=== PATIENT | male | born 1945 | race Hispanic/Latino ===

== ENCOUNTER 2020-07-24 10:08 | Observation (INO) | payer MEDICARE ==
[~2020-07-24] VITALS: Ht 162.6 cm; Wt 65.8 kg
[2020-07-24 10:39] LABS: BASOPHILS % 0.6 % (0.0-1.0); EOSINOPHILS # (AUTO) 0.2 (0.0-0.4); EOSINOPHILS % 2.6 % (0.0-6.0); HEMATOCRIT 39.9 % (38.2-49.6); HEMOGLOBIN 13.4 g/dL (14.0-18.0); LYMPHOCYTES # (AUTO) 1.4 (1.0-3.2); MEAN CORPUSCULAR HEMOGLOBIN 31.2 pg (28-32); MEAN CORPUSCULAR HGB CONC 33.6 g/dL (31-35); MONOCYTES # (AUTO) 0.4 (0.2-0.8); MONOCYTES % 5.9 % (4.4-11.3); NEUTROPHILS # (AUTO) 4.9 (2.1-6.9); NEUTROPHILS % 70.5 % (38.7-80.0); PLATELET COUNT 326 x10e3/uL (140-360); RED BLOOD COUNT 4.29 x10e6/uL (4.3-5.7); RED CELL DISTRIBUTION WIDTH 13.2 % (11.7-14.4)
[2020-07-24 10:45] LABS: INR 1.07; PROTHROMBIN TIME 14.5 seconds (11.9-14.5)
[2020-07-24 10:46] LABS: PARTIAL THROMBOPLASTIN TIME 34.4 seconds (23.8-35.5)
[2020-07-24 10:51] LABS: ALBUMIN 3.8 g/dL (3.5-5.0); ALBUMIN/GLOBULIN RATIO 1.2 (0.8-2.0); ANION GAP 14.1 mmol/L (8-16); CALCIUM 9.4 mg/dL (8.4-10.2); CREATININE, SERUM 1.29 mg/dL (0.72-1.25); MAGNESIUM 1.9 MG/DL (1.3-2.1); POTASSIUM 4.1 mmol/L (3.5-5.1)
[2020-07-24 10:57] LABS: CREATINE KINASE MB 1.1 ng/mL (0-5.0)
--- NOTE | 2020-07-24 11:03 | Emergency Department Note ---
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 Patient reports that after the event he was unable to control his right arm and it was just "dangling" there. Patient appears to be able to move his right arm in triage. Denies pain at this time. Strength in arms appears equal bilaterally. No drift noted. Smile and facial features equal bilaterally. Denies dizziness. Patient is on eliquis for his "blood being too thick". Historian: Patient Arrival Mode: [employer] Required: No Location: RIGHT ARM Quality: WEAK/LIMP Radiation: Reports non-radiation Severity: severe Onset quality: sudden (LASTED ONLY SECONDS) Progression: resolved Chronicity: new Context: Denies recent illness Relieving factors: none Exacerbating factors: none Associated symptoms: Reports denies other symptoms Past Medical/Family History Physician Review I have reviewed the patient's past medical and family history. Any updates have been documented here. Past Medical History Recent Fever: No Clinical Suspicion of Infectio: No New/Unexplained Change in Ment: No Past Medical History: Hypertension, A-Fib, Hyperlipedemia Other Medical History: BPH Other Surgery: cardiac ablation Social History Smoking Cessation: Current every day smoker Alcohol Use: Daily Any Illegal Drug Use: No TB Exposure/Symptoms: No Physically hurt or threatened: No Family History Family history of heart diseas: No Other Any Pre-Existing Lines (PICC,: No Review of Systems Review of Systems Constitutional: Reports no symptoms EENTM: Reports no symptoms Cardiovascular: Reports no symptoms Respiratory: Reports no symptoms Gastrointestinal: Reports no symptoms Genitourinary: Reports no symptoms Musculoskeletal: Reports no symptoms Integumentary: Reports no symptoms Neurological: Reports as per HPI Psychological: Reports no symptoms Endocrine: Reports no symptoms Hematological/Lymphatic: Reports no symptoms Physical Exam Related Data Allergies: Coded Allergies: No Known Allergies (Unverified , 07/24/20) Triage Vital Signs Vital Signs Date Time Temp Pulse Resp B/P (MAP) Pulse Ox O2 Delivery O2 Flow Rate FiO2 07/24/20 10:15 97.7 54 16 136/103 100 Room Air Vital signs reviewed: Yes Physical Exam CONSTITUTIONAL Constitutional: Present well-developed, Present well-nourished HENT HENT: Present normocephalic, Present atraumatic, Present oropharynx clear/moist, Present nose normal HENT L/R: Present left ext ear normal, Present right ext ear normal EYES Eyes: Reports PERRL, Reports conjunctivae normal NECK Neck: Present ROM normal, Present other (NO POSTERIOR NECK BRUIT); Absent carotid bruit PULMONARY Pulmonary: Present effort normal, Present breath sounds normal CARDIOVASCULAR Cardiovascular: Present regular rhythm, Present heart sounds normal, Present capillary refill normal, Present normal rate GASTROINTESTINAL Abdominal: Present soft, Present nontender, Present bowel sounds normal GENITOURINARY Genitourinary: Present exam deferred SKIN Skin: Present warm, Present dry MUSCULOSKELETAL Musculoskeletal: Present ROM normal NEUROLOGICAL Neurological: Present alert, Present oriented x 3, Present DTRs normal, Present no gross motor or sensory deficits; Absent cranial nerve deficit, Absent sensory deficit, Absent abnormal gait, Absent weakness PSYCHOLOGICAL Psychological: Present mood/affect normal, Present judgement normal Results Laboratory Result Diagram: 07/24/20 1024 07/24/20 1024 Laboratory Laboratory Tests Test 07/24/20 10:24 White Blood Count 6.96 x10e3/uL (4.8-10.8) Red Blood Count 4.29 x10e6/uL (4.3-5.7) Hemoglobin 13.4 g/dL (14.0-18.0) Hematocrit 39.9 % (38.2-49.6) Mean Corpuscular Volume 93.0 fL (81-99) Mean Corpuscular Hemoglobin 31.2 pg (28-32) Mean Corpuscular Hemoglobin Concent 33.6 g/dL (31-35) Red Cell Distribution Width 13.2 % (11.7-14.4) Platelet Count 326 x10e3/uL (140-360) Neutrophils (%) (Auto) 70.5 % (38.7-80.0) Lymphocytes (%) (Auto) 20.0 % (18.0-39.1) Monocytes (%) (Auto) 5.9 % (4.4-11.3) Eosinophils (%) (Auto) 2.6 % (0.0-6.0) Basophils (%) (Auto) 0.6 % (0.0-1.0) Neutrophils # (Auto) 4.9 (2.1-6.9) Lymphocytes # (Auto) 1.4 (1.0-3.2) Monocytes # (Auto) 0.4 (0.2-0.8) Eosinophils # (Auto) 0.2 (0.0-0.4) Basophils # (Auto) 0.0 (0.0-0.1) Absolute Immature Granulocyte (auto 0.03 x10e3/uL (0-0.1) Prothrombin Time 14.5 seconds (11.9-14.5) Prothromb Time International Ratio 1.07 Activated Partial Thromboplast Time 34.4 seconds (23.8-35.5) Sodium Level 143 mmol/L (136-145) Potassium Level 4.1 mmol/L (3.5-5.1) Chloride Level 108 mmol/L (98-107) Carbon Dioxide Level 25 mmol/L (22-29) Anion Gap 14.1 mmol/L (8-16) Blood Urea Nitrogen 21 mg/dL (7-26) Creatinine 1.29 mg/dL (0.72-1.25) Estimat Glomerular Filtration Rate 54 ML/MIN (60-) BUN/Creatinine Ratio 16 (6-25) Glucose Level 146 mg/dL (74-118) Calcium Level 9.4 mg/dL (8.4-10.2) Magnesium Level 1.9 MG/DL (1.3-2.1) Total Bilirubin 0.8 mg/dL (0.2-1.2) Aspartate Amino Transf (AST/SGOT) 23 IU/L (5-34) Alanine Aminotransferase (ALT/SGPT) 20 IU/L (0-55) Alkaline Phosphatase 58 IU/L (40-150) Creatine Kinase 57 IU/L (30-200) Total Protein 6.9 g/dL (6.5-8.1) Albumin 3.8 g/dL (3.5-5.0) Globulin 3.1 g/dL (2.3-3.5) Albumin/Globulin Ratio 1.2 (0.8-2.0) Lab results reviewed: Yes Imaging Imaging results reviewed: Yes Impressions CT BRAIN WO HISTORY: Left arm weakness COMPARISON: None. Technique: Noncontrast axial scans were obtained from skull base to the vertex. Coronal and sagittal reconstructions obtained from the axial data. One or more of the following dose reduction techniques were used: Automated exposure control, adjustment of the mA and/or kV according to patient size, and/or utilization of iterative reconstruction technique. DISCUSSION: Scalp/Skull: Unremarkable. Brain sulci: Mildly prominent. Ventricles: Compensatory dilatation. Extra-axial spaces: No masses or fluid collections. Carotid siphon calcifications are present. Parenchyma: Focal cortical insult along the right lateral precentral gyrus is age indeterminate. Mild bilateral deep white matter hypodensity is likely chronic microvascular ischemic change. Otherwise, no masses, hemorrhage, or large vascular territory acute infarct. Dural sinuses: No abnormal densities. Sellar/Suprasellar region: Intact. Skull base: Intact. Incidental findings: Diffuse paranasal sinus mucosal thickening is present. IMPRESSION: 1. 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 2. Otherwise, no acute intracranial abnormalities. 3. Mild supratentorial chronic microvascular ischemic change. Mild generalized cerebral volume loss. Signed by: Dr. Popeye Kay M.D. 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 HE HAS H/O AFIB, ON ELIQUIS, HTN/CHOL - R/O CEREBRAL BLEED, ISCHEMIC STROKE, VERTEBROBASILAR INSUFF, ELECTROLYTE ABNL Reassessment Reassessment ADMIT TO DR TORREZ Assessment & Plan Final Impression: (1) CVA (cerebral vascular accident) Depart Disposition: ADMITTED Last Vital Signs Date Time Temp Pulse Resp B/P (MAP) Pulse Ox O2 Delivery O2 Flow Rate FiO2 07/24/20 10:15 97.7 54 16 136/103 100 Room Air OLEGARIO LUGO MD Jul 24, 2020 11:03
--- NOTE | 2020-07-24 11:34 | Diagnostic Imaging Report ---
TECHNIQUE: Frontal view of the chest. INDICATION: ^LEFT ARM WEAKNESS COMPARISON: None DISCUSSION: Limited evaluation due to portable technique. Lines and hardware: None Heart and mediastinum: Normal limits. Lungs and pleura: No focal airspace consolidation. No pleural effusion. No pneumothorax. Soft tissues and bones: No acute abnormality. IMPRESSION: Negative for acute intrathoracic process. Signed by: Darrell Eddy MD on 07/24/2020 11:30 AM
--- NOTE | 2020-07-24 11:52 | Diagnostic Imaging Report ---
CT BRAIN WO HISTORY: Left arm weakness COMPARISON: None. Technique: Noncontrast axial scans were obtained from skull base to the vertex. Coronal and sagittal reconstructions obtained from the axial data. One or more of the following dose reduction techniques were used: Automated exposure control, adjustment of the mA and/or kV according to patient size, and/or utilization of iterative reconstruction technique. DISCUSSION: Scalp/Skull: Unremarkable. Brain sulci: Mildly prominent. Ventricles: Compensatory dilatation. Extra-axial spaces: No masses or fluid collections. Carotid siphon calcifications are present. Parenchyma: Focal cortical insult along the right lateral precentral gyrus is age indeterminate. Mild bilateral deep white matter hypodensity is likely chronic microvascular ischemic change. Otherwise, no masses, hemorrhage, or large vascular territory acute infarct. Dural sinuses: No abnormal densities. Sellar/Suprasellar region: Intact. Skull base: Intact. Incidental findings: Diffuse paranasal sinus mucosal thickening is present. IMPRESSION: 1. 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 2. Otherwise, no acute intracranial abnormalities. 3. Mild supratentorial chronic microvascular ischemic change. Mild generalized cerebral volume loss. Signed by: Dr. Popeye Kay M.D. on 07/24/2020 11:48 AM
[2020-07-24] MEDS ORDERED: SODIUM CHLORIDE 0.9% 1000ML 1,000 ML IV SCH (12:00)
[2020-07-24] MEDS ORDERED: ONDANSETRON HCL INJ 2MG/ML 2ML 2 MG/ML VIAL IV PRN ×2 (12:00→12:15)
[2020-07-24] MEDS ORDERED: ACETAMINOPHEN 325 MG TAB PO PRN (12:15)
--- OUTSIDE RECORDS SUMMARY | 2020-07-24 12:35 | XMS REPORT | Continuity of Care Document ---
Author Author [facility] t Organization [facility] Address 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 [facility] BPH (benign prostatic hyperplasia) BPH (benign prostatic hyperpl anastacia) Disease Active 2018-02-26 00:00:00 [facility] Atrial fibrillation with rapid ventricular response At rial fibrillation with rapid ventricular response Disease Active 2018-02-25 00:00:00 [facility] Atrial fibrillation Atrial fibrillation Disease Active 2016-04-17 00:00 :00 [facility] Chronic systolic congestive heart failure Chronic syst olic congestive heart failure Disease Active 2016-04-17 00:00:00 [facility] Abnormal stress test Abnormal stress test Disease Active 00:00:00 [facility] Atrial fibrillation with RVR Atrial fibrillation with RVR Disease Active 2016-04-16 00:00:00 [facility] Chest pain, unspecified type Chest pain, unspecified type Disease Active 2016-04-15 00:00:00 [facility] Essential hypertension with goal blood pressure less t meek 130/85 Essential hypertension with goal blood pressure less than 130/85 Disease Activ e 2016-04-15 00:00:00 [facility] Allergies, Adverse Reactions, Alerts This patient has no known allergies or adverse reactions. Social History Social Habit Start Date Stop Date Quantity Comments Source History of tobacco use Cigarette Smoker [facility] Sex Assigned At [facility] Cigarettes smoked current (pack per day) - Reported 00:00:00 2018-02-25 00:00:00 [facility] Tobacco use and exposure 2018-02-25 00:00:00 2018-02-25 00:00:00 [place] r used [facility] Alcohol intake 2018-02-25 00:00:00 2018-02-25 00:00:00 Current drinker of alcohol (finding) [facility] Smoking Status Start Date Stop Date Source Heavy tobacco smoker 2018-02-25 00:00:00 [facility] Medications Ordered Medication Name Filled Medication Name Start Date Stop Da te Current Medication? Ordering Clinician Indication Dosage Frequency Signature (SIG) Comments Components Source tamsulosin (FLOMAX) 0.4 mg Cp24 24 hr capsule 2018-02-26 14:29:5 7 Yes .4mg QD Take 0.4 mg by mouth daily. [facility] simvastatin (ZOCOR) 40 MG tablet 2018-02-26 14:29:57 Yes 40mg QD Take 40 mg by mouth nightly. [facility] apixaban (ELIQUIS) 5 mg Tab tablet 2017-12-17 00:00:00 Yes 5mg Q.5D Take 1 tablet (5 mg total) by mouth 2 (two) times daily. [facility] Procedures This patient has no known procedures. Plan of Care Planned Activity Planned Date Details Comments Source Future Scheduled Test 2020-05-15 00:00:00 INFLUENZA VACCINE (#1) [code = INFLUENZA VACCINE (#1)] [facility] Future Scheduled Test 2011-08-15 00:00:00 MEDICARE ANNUAL WE LLNESS (YEAR 2 or FIRST YEAR if no IPPE) [code = MEDICARE ANNUAL WELLNESS (YEAR 2 or FIRST YEAR if no IPPE)] [facility] Future Scheduled Test 1945 00:00:00 Screening for sri gnant neoplasm of colon (procedure) [code = 404377206] [facility] Results Test Description Test Time Test Comments Results Result Comments Source CT BRAIN WO 2020-07-24 11:42:00 [facility] : 1945 Sex: [place] [id number] Patient Name: SOULEYMANE HERNANDEZ MR #: [id number] : 1945 Age/Sex: 74/M Req #: [id number] [facility] Physician: Ordered by: OLEGARIO LUGO MD Report #: [id number] Location: Room/Bed: Procedure: [id number] CT/CT BRAIN WO Exam Date: 07/24/20 Exam Time: 1100 REPORT STATUS: Signed CT BRAIN WO HISTORY: Left arm weakness COMPARISON: None. Technique: Noncontrast axial scans were obtained from skull base to the vertex. Coronal and sagittal reconstructions obtained from the axial data. One or more of the following dose reduction techniques were used: Automated exposure control, adjustment of the mA and/or kV according to patient size, and/or utilization of iterative reconstruction technique. DISCUSSION: Scalp/Skull: Unremarkable. Brain sulci: Mildly prominent. Ventricles: Compensatory dilatation. Extra-axial spaces: No masses or fluid collections. Carotid siphon calcifications are present. Parenchyma: Focal cortical insult along the right lateral precentral gyrus is age indeterminate. Mild bilateral deep white matter hypodensity is likely chronic microvascular ischemic change. Otherwise, no masses, hemorrhage, or large vascular territory acute infarct. Dural sinuses: No abnormal densities. Sellar/Suprasellar region: Intact. Skull base: Intact. Incidental findings: Diffuse paranasal sinus mucosal thickening is present. IMPRESSION: 1. 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 2. Otherwise, no acute intracranial abnormalities. 3. Mild supratentorial chronic microvascular ischemic change. Mild generalized cerebral volume loss. Signed by: Dr. Popeye Kay M.D. on 07/24/2020 11:48 AM Dictated By: POPEYE KAY MD 1148 Transcribed By: ZHENG on 07/24/20 1148 COPY TO: OLEGARIO LUGO MD CHEST SINGLE (PORTABLE) 2020-07-24 11:29:00 [facility]DE[facility] : 1945 Sex: [place] [id number] Patient Name: SOULEYMANE HERNANDEZ MR #: [id number] : 1945 Age/Sex: 74/M Req #: [id number] Adm Physician: Ordered by: OLEGARIO LUGO MD Report #: [id number] Location: ER Room/Bed: Procedure: [id number] DX/CHEST SINGLE (PORTABLE) Exam Date: Exam Time: REPORT STATUS: Signed TECHNIQUE: Frontal view of the chest. INDICATION: LEFT ARM WEAKNESS COMPARISON: None DISCUSSION: Limited evaluation due to portable technique. Lines and hardware: None Heart and mediastinum: Normal limits. Lungs and pleura: No focal airspace consolidation. No pleural effusion. No pneumothorax. Soft tissues and bones: No acute abnormality. IMPRESSION: Negative for acute intrathoracic process. Signed by: Don Eddy MD on 07/24/2020 11:30 AM Dictated By: DON EDDY MD 113 Transcribed By: ZHENG on 07/24/20 113 COPY TO: OLEGARIO LUGO MD BASIC METABOLIC PANEL 2018-02-26 05:23:00 Test Item SODIUM (BEAKER) (test code = 381) 139 meq/L 136-145 POTASSIUM (BEAKER) (test code = 379) 4.1 meq/L 3.5-5.1 CHLORIDE (BEAKER) (test code = 382) 107 meq/L 98-107 CO2 (BEAKER) (test code = 355) 24 meq/L 22-29 BLOOD UREA NITROGEN (BEAKER) (test code = 354) 19 mg/dL 7-21 CREATININE (BEAKER) (test code = 358) 0.88 mg/dL 0.57-1.25 GLUCOSE RANDOM (BEAKER) (test code = 652) 85 mg/dL 70-105 CALCIUM (BEAKER) (test code = 697) 9.3 mg/dL 8.4-10.2 EGFR (BEAKER) (test code = 1092) mL/min/1.73 sq m INSUFFICIENT CLINICAL DATA TO CALCULATE ESTIMATED GFR. [id number] 05:22:00* Test Item Value Reference Range Interpretation Comments MAGNESIUM (BEAKER) (test code = 627) 2.0 mg/dL 1.6-2.6 CBC W/PLT COUNT & AUTO [id number] 04:57:00* Test Item Value Reference Range Interpretation Comments WHITE BLOOD CELL COUNT (BEAKER) (test code = 775) 5.9 K/ L 3.5- 10.5 RED BLOOD CELL COUNT (BEAKER) (test code = 761) 4.09 M/ L 4.63-6 .08 L HEMOGLOBIN (BEAKER) (test code = 410) 12.5 GM/DL 13.7-17.5 L HEMATOCRIT (BEAKER) (test code = 411) 37.4 % 40.1-51.0 L MEAN CORPUSCULAR VOLUME (BEAKER) (test code = 753) 91.4 fL 79. 0-92.2 MEAN CORPUSCULAR HEMOGLOBIN (BEAKER) (test code = 751) 30.6 pg 25.7-32.2 MEAN CORPUSCULAR HEMOGLOBIN CONC (BEAKER) (test code = 752) 33.4 GM/DL 32.3-36.5 RED CELL DISTRIBUTION WIDTH (BEAKER) (test code = 412) 14.2 % 11.6-14.4 PLATELET COUNT (BEAKER) (test code = 756) 392 K/CU MM 150-450 MEAN PLATELET VOLUME (BEAKER) (test code = 754) 9.3 fL 9.4-12 .4 L NUCLEATED RED BLOOD CELLS (BEAKER) (test code = 413) 0 /100 WBC 0 -0 NEUTROPHILS RELATIVE PERCENT (BEAKER) (test code = 429) 60 % LYMPHOCYTES RELATIVE PERCENT (BEAKER) (test code = 430) 27 % MONOCYTES RELATIVE PERCENT (BEAKER) (test code = 431) 7 % EOSINOPHILS RELATIVE PERCENT (BEAKER) (test code = 432) 5 % BASOPHILS RELATIVE PERCENT (BEAKER) (test code = 437) 1 % NEUTROPHILS ABSOLUTE COUNT (BEAKER) (test code = 670) 3.57 K/ L 1.78-5.38 LYMPHOCYTES ABSOLUTE COUNT (BEAKER) (test code = 414) 1.61 K/ L 1.32-3.57 MONOCYTES ABSOLUTE COUNT (BEAKER) (test code = 415) 0.40 K/ L 0. 30-0.82 EOSINOPHILS ABSOLUTE COUNT (BEAKER) (test code = 416) 0.28 K/ L 0.04-0.54 BASOPHILS ABSOLUTE COUNT (BEAKER) (test code = 417) 0.04 K/ L 0. 01-0.08 IMMATURE GRANULOCYTES-RELATIVE PERCENT (BEAKER) (test code = 2801) 1 % 0-1 POCT-LACTIC ACID, [id number] 02:23:00* Test Item Value Reference Range Interpretation Comments POC-LACTIC ACID, VENOUS (BEAKER) (test code = 2805) 0.7 mmol/L 0. 9-1.7 L TESTED AT [facility] [address] [facility] [address] CREATINE KINASE (CK), TOTAL AND [id number] 18:32:00* Test Item Value Reference Range Interpretation Comments CREATINE KINASE TOTAL (BEAKER) (test code = 380) 80 U/L 29-20 0 CREATINE KINASE-MB (BEAKER) (test code = 750) 1.1 ng/mL 0.0-6.6 CREATINE KINASE-MB INDEX (BEAKER) (test code = 395) 1.4 % CK-MB Reference Range:<6.7 Normal6.7-10.0 Borderline>10.0 Abnormal TROPONIN [id number] 18:32:00* Test Item Value Reference Range Interpretation Comments TROPONIN I (BEAKER) (test code = 397) 0.02 ng/mL 0.00-0.03 Troponin I (TnI) levels must be interpreted in the context of the presenting sym ptoms and the clinical findings. Elevated TnI levels indicate myocardial damage, but are not specific for ischemic heart disease. Elevated TnI levels are seen in patients with other cardiac conditions (including myocarditis and congestive h eart failure), and slight TnI elevations occur in patients with other conditions , including sepsis, renal failure, acidosis, acute neurological disease, and per sistent tachyarrhythmia.[id number] 18:24:00* Test Item Value Reference Range Interpretation Comments MAGNESIUM (BEAKER) (test code = 627) 2.1 mg/dL 1.6-2.6 Specimen slightly hemolyzed TSH/FREE T4 IF [id number] 15:27:00* Test Item Value Reference Range Interpretation Comments THYROID STIMULATING HORMONE (BEAKER) (test code = 772) 1.37 uIU/mL 0.35-4.94 RAD, CHEST, 1 VIEW, NON [id number] 13:05:00Reason for exam:->chest painShould this be performed at the bedside?->YesFINAL REPORT Chest, 1 view. History: Chest pain. Comparison: 12/10/2017. Discussion: The trachea is midline. The lungs are symmetrically expanded without evidence of focal consolidation, pneumothorax, or significant pleural effusion. The cardiomediastinal silhouette and pulmonary vasculature are within normal limits. Vascular calcifications noted within the thoracic aorta. No acute osseous abnormalities identified. The soft tissues are unremarkable. IMPRESSION: No acute cardiopulmonary process identified. Signed: Nikhil Alberto Verified Date/Time: 02/25/2018 13:05:52 Reading Location: [facility] Radiology Reading Room B-TYPE NATRIURETIC FACTOR (BNP)2018-02-25 12:56:00* Test Item Value Reference Range Interpretation Comments B-TYPE NATRIURETIC PEPTIDE (BEAKER) (test code = 700) 297 pg/mL 0-100 H COMPREHENSIVE METABOLIC [id number] 12:55:00* Test Item Value Reference Range Interpretation Comments TOTAL PROTEIN (BEAKER) (test code = 770) 7.5 gm/dL 6.0-8.3 ALBUMIN (BEAKER) (test code = 1145) 4.6 g/dL 3.5-5.0 ALKALINE PHOSPHATASE (BEAKER) (test code = 346) 62 U/L 40-150 BILIRUBIN TOTAL (BEAKER) (test code = 377) 0.7 mg/dL 0.2-1.2 SODIUM (BEAKER) (test code = 381) 140 meq/L 136-145 POTASSIUM (BEAKER) (test code = 379) 3.8 meq/L 3.5-5.1 CHLORIDE (BEAKER) (test code = 382) 104 meq/L 98-107 CO2 (BEAKER) (test code = 355) 25 meq/L 22-29 BLOOD UREA NITROGEN (BEAKER) (test code = 354) 21 mg/dL 7-21 CREATININE (BEAKER) (test code = 358) 1.05 mg/dL 0.57-1.25 GLUCOSE RANDOM (BEAKER) (test code = 652) 102 mg/dL 70-105 CALCIUM (BEAKER) (test code = 697) 10.2 mg/dL 8.4-10.2 AST (SGOT) (BEAKER) (test code = 353) 19 U/L 5-34 ALT (SGPT) (BEAKER) (test code = 347) 15 U/L 6-55 EGFR (BEAKER) (test code = 1092) mL/min/1.73 sq m INSUFFICIENT CLINICAL DATA TO CALCULATE ESTIMATED GFR. TROPONIN [id number] 12:55:00* Test Item Value Reference Range Interpretation Comments TROPONIN I (BEAKER) (test code = 397) < ng/mL 0.00-0.03 Troponin I (TnI) levels must be interpreted in the context of the presenting sym ptoms and the clinical findings. Elevated TnI levels indicate myocardial damage, but are not specific for ischemic heart disease. Elevated TnI levels are seen in patients with other cardiac conditions (including myocarditis and congestive h eart failure), and slight TnI elevations occur in patients with other conditions , including sepsis, renal failure, acidosis, acute neurological disease, and per sistent tachyarrhythmia.[id number] 12:49:00* Test Item Value Reference Range Interpretation Comments MAGNESIUM (BEAKER) (test code = 627) 2.3 mg/dL 1.6-2.6 PT/[id number] 12:37:00* Test Item Value Reference Range Interpretation Comments PROTIME (BEAKER) (test code = 759) 13.9 seconds 11.7-14.7 INR (BEAKER) (test code = 370) 1.1 <=5.9 PARTIAL THROMBOPLASTIN TIME (BEAKER) (test code = 760) 32.5 seconds 22.5-36.0 RECOMMENDED COUMADIN/WARFARIN INR THERAPY RANGESSTANDARD DOSE: 2.0 - 3.0 Inclu ashish: PROPHYLAXIS for venous thrombosis, systemic embolization; TREATMENT for elsa ous thrombosis and/or pulmonary embolus.HIGH RISK: Target INR is 2.5-3.5 for pat ients with mechanical heart valves.CBC W/PLT COUNT & AUTO [id number] 12:27:00* Test Item Value Reference Range Interpretation Comments WHITE BLOOD CELL COUNT (BEAKER) (test code = 775) 7.0 K/ L 3.5- 10.5 RED BLOOD CELL COUNT (BEAKER) (test code = 761) 4.83 M/ L 4.63-6 .08 HEMOGLOBIN (BEAKER) (test code = 410) 14.5 GM/DL 13.7-17.5 HEMATOCRIT (BEAKER) (test code = 411) 44.1 % 40.1-51.0 MEAN CORPUSCULAR VOLUME (BEAKER) (test code = 753) 91.3 fL 79. 0-92.2 MEAN CORPUSCULAR HEMOGLOBIN (BEAKER) (test code = 751) 30.0 pg 25.7-32.2 MEAN CORPUSCULAR HEMOGLOBIN CONC (BEAKER) (test code = 752) 32.9 GM/DL 32.3-36.5 RED CELL DISTRIBUTION WIDTH (BEAKER) (test code = 412) 14.0 % 11.6-14.4 PLATELET COUNT (BEAKER) (test code = 756) 454 K/CU MM 150-450 H MEAN PLATELET VOLUME (BEAKER) (test code = 754) 9.3 fL 9.4-12 .4 L NUCLEATED RED BLOOD CELLS (BEAKER) (test code = 413) 0 /100 WBC 0 -0 NEUTROPHILS RELATIVE PERCENT (BEAKER) (test code = 429) 73 % LYMPHOCYTES RELATIVE PERCENT (BEAKER) (test code = 430) 17 % MONOCYTES RELATIVE PERCENT (BEAKER) (test code = 431) 7 % EOSINOPHILS RELATIVE PERCENT (BEAKER) (test code = 432) 2 % BASOPHILS RELATIVE PERCENT (BEAKER) (test code = 437) 1 % NEUTROPHILS ABSOLUTE COUNT (BEAKER) (test code = 670) 5.12 K/ L 1.78-5.38 LYMPHOCYTES ABSOLUTE COUNT (BEAKER) (test code = 414) 1.16 K/ L 1.32-3.57 L MONOCYTES ABSOLUTE COUNT (BEAKER) (test code = 415) 0.50 K/ L 0. 30-0.82 EOSINOPHILS ABSOLUTE COUNT (BEAKER) (test code = 416) 0.16 K/ L 0.04-0.54 BASOPHILS ABSOLUTE COUNT (BEAKER) (test code = 417) 0.04 K/ L 0. 01-0.08 IMMATURE GRANULOCYTES-RELATIVE PERCENT (BEAKER) (test code = 2801) 0 % 0-1 PROTHROMBIN [id number] 05:04:00* Test Item Value Reference Range Interpretation Comments PROTIME (BEAKER) (test code = 759) 14.8 seconds 11.7-14.7 H INR (BEAKER) (test code = 370) 1.2 <=5.9 RECOMMENDED COUMADIN/WARFARIN INR THERAPY RANGESSTANDARD DOSE: 2.0 - 3.0 Inclu ashish: PROPHYLAXIS for venous thrombosis, systemic embolization; TREATMENT for elsa ous thrombosis and/or pulmonary embolus.HIGH RISK: Target INR is 2.5-3.5 for pat ients with mechanical heart valves.Within 24 hours, if on CoumadinBASIC METABOLIC [id number] 09:05:00* Test Item Value Reference Range Interpretation Comments SODIUM (BEAKER) (test code = 381) 136 meq/L 136-145 POTASSIUM (BEAKER) (test code = 379) 4.9 meq/L 3.5-5.1 Specimen slightly hemolyzed CHLORIDE (BEAKER) (test code = 382) 104 meq/L 98-107 CO2 (BEAKER) (test code = 355) 20 meq/L 22-29 L BLOOD UREA NITROGEN (BEAKER) (test code = 354) 22 mg/dL 7-21 H CREATININE (BEAKER) (test code = 358) 1.15 mg/dL 0.57-1.25 Specimen slightly hemolyzed GLUCOSE RANDOM (BEAKER) (test code = 652) 77 mg/dL 70-105 CALCIUM (BEAKER) (test code = 697) 9.3 mg/dL 8.4-10.2 EGFR (BEAKER) (test code = 1092) mL/min/1.73 sq m INSUFFICIENT CLINICAL DATA TO CALCULATE ESTIMATED GFR. BASIC METABOLIC [id number] 05:07:00* Test Item Value Reference Range Interpretation Comments SODIUM (BEAKER) (test code = 381) 135 meq/L 136-145 L POTASSIUM (BEAKER) (test code = 379) 4.1 meq/L 3.5-5.1 CHLORIDE (BEAKER) (test code = 382) 103 meq/L 98-107 CO2 (BEAKER) (test code = 355) 25 meq/L 22-29 BLOOD UREA NITROGEN (BEAKER) (test code = 354) 24 mg/dL 7-21 H CREATININE (BEAKER) (test code = 358) 1.15 mg/dL 0.57-1.25 GLUCOSE RANDOM (BEAKER) (test code = 652) 93 mg/dL 70-105 CALCIUM (BEAKER) (test code = 697) 9.5 mg/dL 8.4-10.2 EGFR (BEAKER) (test code = 1092) mL/min/1.73 sq m INSUFFICIENT CLINICAL DATA TO CALCULATE ESTIMATED GFR. BASIC METABOLIC [id number] 05:20:00* Test Item Value Reference Range Interpretation Comments SODIUM (BEAKER) (test code = 381) 137 meq/L 136-145 POTASSIUM (BEAKER) (test code = 379) 4.3 meq/L 3.5-5.1 Specimen slightly hemolyzed CHLORIDE (BEAKER) (test code = 382) 102 meq/L 98-107 CO2 (BEAKER) (test code = 355) 25 meq/L 22-29 BLOOD UREA NITROGEN (BEAKER) (test code = 354) 28 mg/dL 7-21 H CREATININE (BEAKER) (test code = 358) 1.42 mg/dL 0.57-1.25 H Specimen slightly hemolyzed GLUCOSE RANDOM (BEAKER) (test code = 652) 102 mg/dL 70-105 CALCIUM (BEAKER) (test code = 697) 9.8 mg/dL 8.4-10.2 EGFR (BEAKER) (test code = 1092) mL/min/1.73 sq m INSUFFICIENT CLINICAL DATA TO CALCULATE ESTIMATED GFR. [id number] 05:04:00* Test Item Value Reference Range Interpretation Comments PARTIAL THROMBOPLASTIN TIME (BEAKER) (test code = 760) 76.4 seconds 22.5-36.0 H [id number] 18:43:00* Test Item Value Reference Range Interpretation Comments PARTIAL THROMBOPLASTIN TIME (BEAKER) (test code = 760) 67.4 seconds 22.5-36.0 H TSH/FREE T4 IF [id number] 12:59:00* Test Item Value Reference Range Interpretation Comments THYROID STIMULATING HORMONE (BEAKER) (test code = 772) 2.30 uIU/mL 0.35-4.94 [id number] 12:24:00* Test Item Value Reference Range Interpretation Comments PARTIAL THROMBOPLASTIN TIME (BEAKER) (test code = 760) 81.6 seconds 22.5-36.0 H [id number] 04:37:00* Test Item Value Reference Range Interpretation Comments PARTIAL THROMBOPLASTIN TIME (BEAKER) (test code = 760) 95.7 seconds 22.5-36.0 H [id number] 17:13:00* Test Item Value Reference Range Interpretation Comments PARTIAL THROMBOPLASTIN TIME (BEAKER) (test code = 760) 68.4 seconds 22.5-36.0 H PET, CARDIAC PERFUSION MULTIPLE STUDIES, REST AND [id number] 15:16:00 Reason for exam:->CHEST PAINFINAL REPORT PROCEDURE: Rest/Stress MYOCARDIAL PERFUSION PET with regadenoson\XA9\ CPT CODE: 86838 INDICATION: Chest pain HISTORY: Cardiac risk factors: Hypertension, hyperlipidemia, tobacco use, stroke, family history of early CAD. Other cardiovascular history: atrial fibrillation. Recent cardiac symptoms: Chest pain, CHF. Current cardiovascular-related medications: Aspirin, amiodarone, Lasix, diltiazem, metoprolol, heparin. PROTOCOL: Limited low- dose CT imaging was performed for attenuation correction. 40.1 mCi of Rb-82 chloride was injected iv at rest, and gated PET (positron emission tomography) images were obtained. Subsequently, 40.1 mCi of Rb-82 chloride was injected iv at expected peak pharmacologic effect, and gated PET images were obtained. PRELIMINARY STRESS TEST DATA FROM NONINVASIVE CARDIOLOGY: Pharmacologic stress was by 10-second iv infusion of 0.4 mg of regadenoson. Radiotracer was injected 30 seconds after start of stress. Heart rate was 101 beats/min at rest and 103 beats/min (69% of MPHR) at tracer injection. BP was 104/75 mmHg at rest and 90/65 mmHg at tracer injection. Stress was stopped for predetermined endpoint. The patient experienced chest tightness and headache; treatment was not required. Preliminary ECG evaluation revealed 3:1 atrial flutter at rest and no ischemic changes with stress. (Final ECG interpretation and other stress and monitoring data are reported separately by Cardiology.) IMAGING FINDINGS: Study quality is good. Images obtained after stress injection show normal rad iotracer uptake. Resting images show normal radiotracer uptake. LV volume appear s normal. RV volume appears normal. Gated images obtained immediately after stre ss show globally hypokinetic LV wall motion. Gated images obtained at rest show globally hypokinetic LV wall motion. LVEF at rest is 38%. LVEF at stress is 49%. IMPRESSION: 1. Abnormal study. 2. Appropriate pharmacologic stress. 3. Norm al myocardial perfusion. 4. Moderately decreased resting LV function. No deterio ration of function is noted with pharmacologic stress. 5. Extracardiac tracer d istribution is normal. 6. The previous [facility] SPECT study on April 16, 2016, rep orted simialr findings. NONINVASIVE RISK STRATIFICATION: The above findings are considered intermediate risk (1% to 3% annual mortality rate) based on the [place] wing criterion: - Mild/moderate resting left ventricular dysfunction (LVEF 35% t o 49%) Signed: Maya Em MDReport Verified Date/Time: 12/11/2017 15:16:20 R eading Location: [address] Reading Room [id number] 08:36:00* Test Item Value Reference Range Interpretation Comments PARTIAL THROMBOPLASTIN TIME (BEAKER) (test code = 760) 60.4 seconds 22.5-36.0 H TROPONIN [id number] 06:20:00* Test Item Value Reference Range Interpretation Comments TROPONIN I (BEAKER) (test code = 397) 0.04 ng/mL 0.00-0.03 H Troponin I (TnI) levels must be interpreted in the context of the presenting sym ptoms and the clinical findings. Elevated TnI levels indicate myocardial damage, but are not specific for ischemic heart disease. Elevated TnI levels are seen in patients with other cardiac conditions (including myocarditis and congestive h eart failure), and slight TnI elevations occur in patients with other conditions , including sepsis, renal failure, acidosis, acute neurological disease, and per sistent tachyarrhythmia.BASIC METABOLIC [id number] 06:15:00* Test Item Value Reference Range Interpretation Comments SODIUM (BEAKER) (test code = 381) 135 meq/L 136-145 L POTASSIUM (BEAKER) (test code = 379) 3.9 meq/L 3.5-5.1 CHLORIDE (BEAKER) (test code = 382) 102 meq/L 98-107 CO2 (BEAKER) (test code = 355) 22 meq/L 22-29 BLOOD UREA NITROGEN (BEAKER) (test code = 354) 20 mg/dL 7-21 CREATININE (BEAKER) (test code = 358) 1.01 mg/dL 0.57-1.25 GLUCOSE RANDOM (BEAKER) (test code = 652) 102 mg/dL 70-105 CALCIUM (BEAKER) (test code = 697) 9.4 mg/dL 8.4-10.2 EGFR (BEAKER) (test code = 1092) mL/min/1.73 sq m INSUFFICIENT CLINICAL DATA TO CALCULATE ESTIMATED GFR. B-TYPE NATRIURETIC FACTOR (BNP)2017-12-11 06:11:00* Test Item Value Reference Range Interpretation Comments B-TYPE NATRIURETIC PEPTIDE (BEAKER) (test code = 700) 215 pg/mL 0-100 H [id number] 06:11:00* Test Item Value Reference Range Interpretation Comments PHOSPHORUS (BEAKER) (test code = 604) 3.6 mg/dL 2.3-4.7 [id number] 06:11:00* Test Item Value Reference Range Interpretation Comments MAGNESIUM (BEAKER) (test code = 627) 2.0 mg/dL 1.6-2.6 TROPONIN [id number] 02:07:00* Test Item Value Reference Range Interpretation Comments TROPONIN I (BEAKER) (test code = 397) 0.05 ng/mL 0.00-0.03 H Troponin I (TnI) levels must be interpreted in the context of the presenting sym ptoms and the clinical findings. Elevated TnI levels indicate myocardial damage, but are not specific for ischemic heart disease. Elevated TnI levels are seen in patients with other cardiac conditions (including myocarditis and congestive h eart failure), and slight TnI elevations occur in patients with other conditions , including sepsis, renal failure, acidosis, acute neurological disease, and per sistent tachyarrhythmia.[id number] 01:51:00* Test Item Value Reference Range Interpretation Comments PARTIAL THROMBOPLASTIN TIME (BEAKER) (test code = 760) 42.7 seconds 22.5-36.0 H TROPONIN [id number] 19:56:00* Test Item Value Reference Range Interpretation Comments TROPONIN I (BEAKER) (test code = 397) 0.06 ng/mL 0.00-0.03 H Troponin I (TnI) levels must be interpreted in the context of the presenting sym ptoms and the clinical findings. Elevated TnI levels indicate myocardial damage, but are not specific for ischemic heart disease. Elevated TnI levels are seen in patients with other cardiac conditions (including myocarditis and congestive h eart failure), and slight TnI elevations occur in patients with other conditions , including sepsis, renal failure, acidosis, acute neurological disease, and per sistent tachyarrhythmia.[id number] 19:40:00* Test Item Value Reference Range Interpretation Comments PARTIAL THROMBOPLASTIN TIME (BEAKER) (test code = 760) 30.1 seconds 22.5-36.0 6 hours after starting heparin infusion and as indicated per sliding scaleBASIC METABOLIC [id number] 10:39:00* Test Item Value Reference Range Interpretation Comments SODIUM (BEAKER) (test code = 381) 138 meq/L 136-145 POTASSIUM (BEAKER) (test code = 379) 4.3 meq/L 3.5-5.1 CHLORIDE (BEAKER) (test code = 382) 105 meq/L 98-107 CO2 (BEAKER) (test code = 355) 26 meq/L 22-29 BLOOD UREA NITROGEN (BEAKER) (test code = 354) 20 mg/dL 7-21 CREATININE (BEAKER) (test code = 358) 1.04 mg/dL 0.57-1.25 GLUCOSE RANDOM (BEAKER) (test code = 652) 113 mg/dL 70-105 H CALCIUM (BEAKER) (test code = 697) 9.5 mg/dL 8.4-10.2 EGFR (BEAKER) (test code = 1092) mL/min/1.73 sq m INSUFFICIENT CLINICAL DATA TO CALCULATE ESTIMATED GFR. TROPONIN [id number] 10:35:00* Test Item Value Reference Range Interpretation Comments TROPONIN I (BEAKER) (test code = 397) 0.03 ng/mL 0.00-0.03 Troponin I (TnI) levels must be interpreted in the context of the presenting sym ptoms and the clinical findings. Elevated TnI levels indicate myocardial damage, but are not specific for ischemic heart disease. Elevated TnI levels are seen in patients with other cardiac conditions (including myocarditis and congestive h eart failure), and slight TnI elevations occur in patients with other conditions , including sepsis, renal failure, acidosis, acute neurological disease, and per sistent tachyarrhythmia.[id number] 10:28:00* Test Item Value Reference Range Interpretation Comments MAGNESIUM (BEAKER) (test code = 627) 1.8 mg/dL 1.6-2.6 B-TYPE NATRIURETIC FACTOR (BNP)2017-12-10 10:25:00* Test Item Value Reference Range Interpretation Comments B-TYPE NATRIURETIC PEPTIDE (BEAKER) (test code = 700) 240 pg/mL 0-100 H CBC W/PLT COUNT & AUTO [id number] 10:19:00* Test Item Value Reference Range Interpretation Comments WHITE BLOOD CELL COUNT (BEAKER) (test code = 775) 6.6 K/ L 3.5- 10.5 RED BLOOD CELL COUNT (BEAKER) (test code = 761) 4.62 M/ L 4.63-6 .08 L HEMOGLOBIN (BEAKER) (test code = 410) 14.4 GM/DL 13.7-17.5 HEMATOCRIT (BEAKER) (test code = 411) 42.6 % 40.1-51.0 MEAN CORPUSCULAR VOLUME (BEAKER) (test code = 753) 92.2 fL 79. 0-92.2 MEAN CORPUSCULAR HEMOGLOBIN (BEAKER) (test code = 751) 31.2 pg 25.7-32.2 MEAN CORPUSCULAR HEMOGLOBIN CONC (BEAKER) (test code = 752) 33.8 GM/DL 32.3-36.5 RED CELL DISTRIBUTION WIDTH (BEAKER) (test code = 412) 13.6 % 11.6-14.4 PLATELET COUNT (BEAKER) (test code = 756) 442 K/CU MM 150-450 MEAN PLATELET VOLUME (BEAKER) (test code = 754) 9.4 fL 9.4-12 .4 NUCLEATED RED BLOOD CELLS (BEAKER) (test code = 413) 0 /100 WBC 0 -0 NEUTROPHILS RELATIVE PERCENT (BEAKER) (test code = 429) 76 % LYMPHOCYTES RELATIVE PERCENT (BEAKER) (test code = 430) 14 % MONOCYTES RELATIVE PERCENT (BEAKER) (test code = 431) 6 % EOSINOPHILS RELATIVE PERCENT (BEAKER) (test code = 432) 3 % BASOPHILS RELATIVE PERCENT (BEAKER) (test code = 437) 1 % NEUTROPHILS ABSOLUTE COUNT (BEAKER) (test code = 670) 5.00 K/ L 1.78-5.38 LYMPHOCYTES ABSOLUTE COUNT (BEAKER) (test code = 414) 0.92 K/ L 1.32-3.57 L MONOCYTES ABSOLUTE COUNT (BEAKER) (test code = 415) 0.38 K/ L 0. 30-0.82 EOSINOPHILS ABSOLUTE COUNT (BEAKER) (test code = 416) 0.19 K/ L 0.04-0.54 BASOPHILS ABSOLUTE COUNT (BEAKER) (test code = 417) 0.03 K/ L 0. 01-0.08 IMMATURE GRANULOCYTES-RELATIVE PERCENT (BEAKER) (test code = 2801) 1 % 0-1 PT/[id number] 10:15:00* Test Item Value Reference Range Interpretation Comments PROTIME (BEAKER) (test code = 759) 13.4 seconds 11.7-14.7 INR (BEAKER) (test code = 370) 1.0 <=5.9 PARTIAL THROMBOPLASTIN TIME (BEAKER) (test code = 760) 28.5 seconds 22.5-36.0 RECOMMENDED COUMADIN/WARFARIN INR THERAPY RANGESSTANDARD DOSE: 2.0 - 3.0 Inclu ashish: PROPHYLAXIS for venous thrombosis, systemic embolization; TREATMENT for elsa ous thrombosis and/or pulmonary embolus.HIGH RISK: Target INR is 2.5-3.5 for pat ients with mechanical heart valves.RAD, CHEST, 1 VIEW, NON [id number] 10:04:00Reason for exam:->cpFINAL REPORT Chest one view INDICATION: Chest pain COMPARISON: 04/15/2016 IMPRESSION: There is no focal consolidation, vascular congestion, pleural effusion, or pneumothorax. Heart size is at the upper limit of normal. Mild aortic tortuosity and calcification and degenerative spine changes are noted. Signed: Fatemeh La Verified Date/Time: 12/10/2017 10:04:36 Reading Location: [facility] Radiology Reading Room
--- OUTSIDE RECORDS SUMMARY | 2020-07-24 12:35 | XMS REPORT | Clinical Summary ---
Author Author [facility] Address Unknown Phone Unavailable Care Team Providers Care Routing Clerk Name Role Phone Randal Harris MD PCP [phone] Allergies No Known Allergies Medications End Date Status Medication Sig Dispensed Refills Start Date Active tamsulosin (FLOMAX) 0.4 Take 0.4 mg 0 mg Cp24 24 hr capsule by mouth daily. Active simvastatin (ZOCOR) 40 MG Take 40 mg by 0 tablet mouth nightly. Active apixaban (ELIQUIS) 5 mg Take 1 tablet 60 tablet 1 Tab tablet (5 mg total) 8 by mouth 2 (two) times daily. 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/2018 BPH (benign prostatic hyperplasia) 02/26/2018 Atrial fibrillation with rapid ventricular response 02/25/2018 Atrial fibrillation 04/17/2016 Chronic systolic congestive heart failure 04/17/2016 Abnormal stress test 04/17/2016 Atrial fibrillation with RVR 04/16/2016 Chest pain, unspecified type 04/15/2016 Essential hypertension with goal blood pressure less than 130/85 04/15/2016 Social History Date Tobacco Use Types Packs/Day Years Used Heavy Tobacco Smoker Cigarettes 0.5 Smokeless Tobacco: Never Used Tobacco Cessation: Ready to Quit: Yes; C ounseling Given: Yes Drinks/Week oz/Week Comments Alcohol Use 35 Cans of beer 35.0 Yes Sex Assigned at Date Recorded Not on file Last Filed Vital Signs Not on file Plan of Treatment Health Maintenance Due Date Last Done Comments COLON CANCER SCREENING 1945 COLONOSCOPY MEDICARE ANNUAL WELLNESS 08/15/2011 (YEAR 2 or FIRST YEAR if no IPPE) INFLUENZA VACCINE (#1) 2020 09/24/2017, 06/11/2016, 07/13/2015, Additional history exists PNEUMOCOCCAL 65+ YRS Completed 10/24/2015, 10/01/2010 Results Not on fileafter 07/24/2019 Insurance Type Payer Benefit Subscriber ID Effective Phone Address Plan / Dates Group [facility] [id number] 2010- MEDICARE Present ADV Advance Directives For more information, please contact: [phone] Date Inactivated Comments Code Status Date Activated 02/26/2018 4:30 PM Full Code 02/25/2018 2:57 PM This code status was determined by: Patient 12/17/2017 1:54 PM Full Code 12/14/2017 12:00 PM This code status was determined by: Patient 12/14/2017 12:00 PM Full Code 12/10/2017 3:31 PM This code status was determined by: Patient 04/17/2016 12:07 PM Full Code 04/17/2016 12:01 PM This code status was determined by: Patient
--- NOTE | 2020-07-24 13:29 | NUR ---
Recvd patient from ER, AAOx3, Denies any SOB, No distress noted, call light in reach, daughter at bed side, keep monitoring
--- NOTE | 2020-07-24 14:26 | Diagnostic Imaging Report ---
MRI BRAIN WO HISTORY: Left arm weakness COMPARISON: Head CT 07/24/2020 TECHNIQUE: Sagittal T2, axial T2, axial T1, axial T2/FLAIR, axial gradient echo (or susceptibility weighted), coronal T2/FLAIR, and axial diffusion weighted MR images of the brain were obtained without contrast. Motion artifacts obscure some details. DISCUSSION: Scalp/bone marrow: Unremarkable. Brain sulci: Prominent. Ventricles: Compensatory dilatation. Extra-axial spaces: No masses or fluid collections. Parenchyma: Small area of focal cortical T2/FLAIR hyperintensity along the lateral right precentral gyrus is not associated with diffusion restriction, or magnetic susceptibility. There is no significant mass effect or volume loss. A subtle small area of mild cortical diffusion restriction (bright on DWI, dark to isointense on ADC map) is seen in the right inferior parietal lobule. No other diffusion restriction abnormalities are seen. Scattered T2/FLAIR hyperintense foci throughout the supratentorial white matter are likely chronic microvascular ischemic changes. Otherwise, no mass or hemorrhage. Vessels: Normal flow voids in major arteries and veins. Sellar/Suprasellar region: No abnormalities. Craniocervical junction: No abnormalities. Incidental findings: Moderate to severe diffuse bilateral paranasal sinus mucosal thickening is present. IMPRESSION: 1. 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 2. Subtle small area of acute to subacute cortical ischemia in the right inferior parietal lobule. 3. No other acute intracranial abnormalities. 4. Mild supratentorial chronic microvascular ischemic change. 5. Mild generalized cerebral volume loss. Signed by: Dr. Popeye Kay M.D. on 07/24/2020 2:22 PM
--- NOTE | 2020-07-24 14:33 | Diagnostic Imaging Report ---
MRA NECK WO, MRA HEAD WO HISTORY: Left arm weakness COMPARISON: MRI of the brain and head CT 07/24/2020 TECHNIQUE: Axial 2D cervical, and axial 3D intracranial [id number] MRA images were obtained without contrast. Maximum intensity projection and coronal/sagittal reformatted images were created. If present, any cervical carotid stenosis will be measured as a percentage relative to the [place] artery distal to the stenosis. FINDINGS: CERVICAL MRA: Right Carotid: No flow abnormalities. Left Carotid: No flow abnormalities. Right vertebral artery: No flow abnormalities. Left vertebral artery: No flow abnormalities. INTRACRANIAL MRA: Carotid arteries: No flow abnormalities in the intracranial internal carotid arteries. Normal A1 and M1 segments. Vertebrobasilar Circulation: Right vertebral artery: No flow abnormalities. Left vertebral artery: No flow abnormalities. Basilar artery: No flow abnormalities. Posterior cerebral arteries: No flow abnormalities. Normal Variants: ACom: Not clearly visualized. PComs: Patent on the right. Not visualized on the left. Vertebral arteries: Left dominant. IMPRESSION: No cervical or intracranial MRA abnormalities. Signed by: Dr. Popeye Kay M.D. on 07/24/2020 2:30 PM
--- NOTE | 2020-07-24 14:33 | Diagnostic Imaging Report ---
MRA NECK WO, MRA HEAD WO HISTORY: Left arm weakness COMPARISON: MRI of the brain and head CT 07/24/2020 TECHNIQUE: Axial 2D cervical, and axial 3D intracranial [id number] MRA images were obtained without contrast. Maximum intensity projection and coronal/sagittal reformatted images were created. If present, any cervical carotid stenosis will be measured as a percentage relative to the cachil dehe artery distal to the stenosis. FINDINGS: CERVICAL MRA: Right Carotid: No flow abnormalities. Left Carotid: No flow abnormalities. Right vertebral artery: No flow abnormalities. Left vertebral artery: No flow abnormalities. INTRACRANIAL MRA: Carotid arteries: No flow abnormalities in the intracranial internal carotid arteries. Normal A1 and M1 segments. Vertebrobasilar Circulation: Right vertebral artery: No flow abnormalities. Left vertebral artery: No flow abnormalities. Basilar artery: No flow abnormalities. Posterior cerebral arteries: No flow abnormalities. Normal Variants: ACom: Not clearly visualized. PComs: Patent on the right. Not visualized on the left. Vertebral arteries: Left dominant. IMPRESSION: No cervical or intracranial MRA abnormalities. Signed by: Dr. Popeye Kay M.D. on 07/24/2020 2:30 PM
[2020-07-24] MEDS ORDERED: DIGOXIN125 MCG PO (15:43)
[2020-07-24] MEDS ORDERED: SIMVASTATIN40 MG PO (15:43)
[2020-07-24] MEDS ORDERED: METOPROLOL SUCC50 MG PO (15:43)
[2020-07-24] MEDS ORDERED: FLOMAX0.4 MG PO (15:43)
[2020-07-24] MEDS ORDERED: ELIQUIS5 MG PO (15:43)
[2020-07-24 15:52] VITALS: BP 152/89
[2020-07-24 16:47] VITALS: BP 152/89
[2020-07-24] MEDS: SODIUM CHLORIDE 0.9% 1000ML 1,000 ML IV SCH (17:43)
[2020-07-24] MEDS: METOPROLOL TARTRATE 50 MG TAB PO SCH (18:16)
[2020-07-24] MEDS ORDERED: LORAZEPAM INJ 2 MG/ML VIAL IV PRN (18:30)
[2020-07-24] MEDS ORDERED: NICOTINE 14 MG/EA PATCH TOP PRN (18:30)
--- NOTE | 2020-07-24 18:48 | NUR ---
SBAR REPORT RECEIVED FROM KAM JIMÉNEZ, PATIENT SEEN SITTING IN BED, TRISTIN, ARABIC/GREEK SPEAKING, NO ACUTE DISTRESS NOTED, SKIN WARM DRY, DENIES PAIN OR DISCOMFORT, REMAIN ON TELEMETRY FOR SAFETY SEEN MOVING ALL EXTREMITIES EQUALLY, ORIENTED TO ONCOMING STAFF, CALL LIGHT WITHIN REACH Addendum: 07/25/20 at 0526 by MANE FINK RN PATIENT AOX3, MEDICATION PASS COMPLETED, TOLERATED WELL, NO DISTRESS DENIES PAIN OR DISCOMFORT AT THIS TIME
--- NOTE | 2020-07-24 19:00 | NUR ---
SBAR REPORT RECEIVED FROM DAYSHIFT PATIENT HERE TO R/O CVA, PT AOX4, ABLE TO MOVE ALL EXTREMITIES W/O DIFFICULTY, GAIT STEADY, FALL PRECAUTIONS IN PLACE FOR SAFETY OVERNIGHT, URINAL WITHIN REACH, IV HYDRATION IN PLACE IV SITE PATENT SITE INTACT CALL LIGHT WITHIN REACH
--- NOTE | 2020-07-24 20:13 | History and Physical ---
PCP: Dr. Randal Harris at [facility]. CHIEF COMPLAINT: Left upper extremity weakness x2 days ago. HISTORY OF PRESENT ILLNESS: This is a 74-year-old male with past medical history of atrial fibrillation, high cholesterol, and BPH, presented to the ER with complaints of left upper extremity weakness that happened 2 days ago. 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 He reports the symptoms lasted a few seconds and was able to regain his strength. He denies any dizziness, chest pain, nausea, vomiting, diaphoresis, left lower extremity weakness, slurred speech, or vision disturbance. At the time of assessment, he has 5+ strength bilaterally, no focal weakness, no change in mentation, denies any vision problem, fever, chills, nausea, or vomiting. He has not had any further episodes since 2 days ago. He is outside the tPA window. CT brain in the ER shows focal cortical infarct along the right lateral precentral gyrus is age indeterminate, otherwise no acute intracranial abnormality. It shows chronic microvascular ischemic changes and mild generalized cerebral volume loss. He will be admitted for further evaluation. PAST MEDICAL HISTORY: 1. Atrial fibrillation. 2. High cholesterol. 3. BPH. PAST SURGICAL HISTORY: He reports had an ablation done for his atrial fibrillation in 2018. FAMILY MEDICAL HISTORY: He reports mother of cancer and father had cardiac disease. SOCIAL HISTORY: He reports he smokes about 1 pack a day and drinks 6 beers a day. He denies any illicit drug use. ALLERGIES: NO KNOWN DRUG ALLERGIES. REVIEW OF SYSTEMS: Twelve-system reviewed and negative except as reported in HPI. PHYSICAL EXAMINATION: VITAL SIGNS: Temperature 97.7, pulse is 54, respirations 16, blood pressure 136/103, pulse ox is 100% on room air. GENERAL: No acute distress. HEENT: Normocephalic and atraumatic. NECK: Supple. LUNGS: Clear to auscultation. CARDIOVASCULAR: Regular rate and rhythm. GI: Soft and nontender. NEUROLOGIC: Alert, awake, and oriented x3. MUSCULOSKELETAL: Moves all extremities, 5+ throughout. SKIN: Dry and intact. PSYCH: Calm. LABORATORY DATA: WBC 6.96, hemoglobin 13.4, hematocrit 39.9, and platelets 326. Sodium 143, potassium 4.1, BUN 21, creatinine 1.29, estimated GFR is 54, glucose 146, AST 23, ALT 20, total bilirubin 0.8, troponin 0.008. PT 14.5, INR 1.07, APTT 34.4. COVID PCR is pending. IMAGING: CT brain, focal cortical infarct along the right lateral precentral gyrus is age indeterminate, otherwise no acute intracranial abnormalities. Chest x-ray, negative for acute intrathoracic process. IMPRESSION AND PLAN: 1. Transient ischemic attack. CT brain noted. MRI head and neck pending. No focal weakness at this time. We will resume statin and Eliquis. We will check echo and carotid ultrasounds. Since there is no neuro deficit and outside tPA window, we will monitor. 2. Acute kidney injury. Creatinine is 1.29. We will give IV fluid hydration and repeat labs in a.m. 3. History of atrial fibrillation. Status post ablation in 2018. We will continue on metoprolol and Eliquis for cerebrovascular accident prophylactic. 4. High cholesterol. He may resume statin 40 mg at bedtime. We will check lipid panel in the morning. 5. Smoker. Advised cessation. We will order nicotine patch p.r.n. 6. Alcohol use. Drinks 6 beers a day. We will order Ativan p.r.n. withdrawal. 7. Deep vein thrombosis prophylaxis, on Eliquis. Plan is to continue workup with MRI, echo, and carotid Doppler. We will consult Physical Therapy to evaluate and treat. Dictated by YANIQUE Armendariz Nilesh Keller MD MY/MODL /[id number]
[2020-07-24 20:15] VITALS: BP 134/80
[2020-07-24 20:16] VITALS: BP 134/80
[2020-07-24] MEDS ORDERED: SIMVASTATIN 40 MG TAB PO SCH (21:00)
[2020-07-25] VITALS (7 sets, daily range): BP systolic 123–153; BP diastolic 66–87
[2020-07-25] MEDS: SODIUM CHLORIDE 0.9% 1000ML 1,000 ML IV SCH
[2020-07-25 05:48] LABS: BASOPHILS % 0.4 % (0.0-1.0); EOSINOPHILS # (AUTO) 0.2 (0.0-0.4); EOSINOPHILS % 2.7 % (0.0-6.0); HEMATOCRIT 36.2 % (38.2-49.6); HEMOGLOBIN 11.8 g/dL (14.0-18.0); LYMPHOCYTES # (AUTO) 1.6 (1.0-3.2); LYMPHOCYTES % 22.1 % (18.0-39.1); MEAN CORPUSCULAR HEMOGLOBIN 30.9 pg (28-32); MEAN CORPUSCULAR HGB CONC 32.6 g/dL (31-35); MEAN CORPUSCULAR VOLUME 94.8 fL (81-99); MONOCYTES # (AUTO) 0.7 (0.2-0.8); MONOCYTES % 9.4 % (4.4-11.3); NEUTROPHILS # (AUTO) 4.8 (2.1-6.9); NEUTROPHILS % 65.1 % (38.7-80.0); PLATELET COUNT 314 x10e3/uL (140-360); RED BLOOD COUNT 3.82 x10e6/uL (4.3-5.7); RED CELL DISTRIBUTION WIDTH 13.1 % (11.7-14.4)
[2020-07-25 06:13] LABS: ALBUMIN 3.4 g/dL (3.5-5.0); ALBUMIN/GLOBULIN RATIO 1.2 (0.8-2.0); ANION GAP 11.4 mmol/L (8-16); CALCIUM 8.6 mg/dL (8.4-10.2); CREATININE, SERUM 1.36 mg/dL (0.72-1.25); POTASSIUM 4.4 mmol/L (3.5-5.1)
[2020-07-25 06:14] LABS: CHOL/HDL RATIO 3.5 (3.9-4.7)
[2020-07-25 06:47] LABS: CREATINE KINASE MB 0.8 ng/mL (0-5.0)
[2020-07-25] MEDS ORDERED: APIXABAN 5 MG TABLET PO SCH (09:00)
[2020-07-25] MEDS ORDERED: FOLIC ACID 1 MG TAB PO SCH (09:00)
[2020-07-25] MEDS ORDERED: TAMSULOSIN HCL 0.4 MG CAP PO SCH (09:00)
--- NOTE | 2020-07-25 09:55 | NUR ---
Discontinuing skilled PT services since patient is independent in functional mobility. Thank you. Addendum: 07/25/20 at 0956 by Bhanu lester PT Amended: Links added.
[2020-07-25] MEDS: METOPROLOL TARTRATE 50 MG TAB PO SCH (10:02)
[2020-07-25] MEDS ORDERED: ASPIRIN 81 MG ENTERIC COATED PO SCH (11:15)
[2020-07-25] MEDS ORDERED: ASPIRIN EC81 MG PO (11:33)
[2020-07-25] MEDS ORDERED: ONDANSETRON HCL 4 MG ORAL DISINTEGRATING TAB PO PRN (13:00)
--- NOTE | 2020-07-25 13:09 | NUR ---
Patient discharged home, per aircraft launch and recovery technician Carotid Doppler result is negative, notified Nita RIDER , new order recvd to discharge patient and he can take his own home aspirin. Discharge instruction given to patient and daughter at bed side. They verbalized understanding. IV canula removed with tip intact, no ss of infiltration, transported via wheelchair to [facility]
--- NOTE | 2020-07-25 20:54 | Discharge Summary ---
PRIMARY CARE PHYSICIAN: Dr. Randal Harris at [facility]. FINAL DISCHARGE DIAGNOSES: 1. Subacute infarct in the right lateral precentral gyrus with left arm weakness. 2. Acute kidney injury. 3. History of atrial fibrillation. 4. High cholesterol. 5. Smoker. 6. Alcohol use. 7. Systolic congestive heart failure without exacerbation, new onset. CONSULTANTS: None. PROCEDURES: MRI and MRA of the head and neck. HISTORY: Per HPI. HOSPITAL COURSE: This is a 74-year-old male with past medical history of atrial fibrillation, high cholesterol, and BPH, presented to the ER with complaints of left hand weakness 2 days ago. At the time of this mentioned in the ER, his symptoms had resolved. CT brain, MRI and MRA of head and neck showed new focal subacute or chronic cortical infarct along the right lateral precentral gyrus, septal small area of acute to subacute cortical ischemia in the right inferior parietal lobules. No other acute intracranial abnormalities. Mild supratentorial chronic microvascular ischemic changes. Mild generalized cerebral volume loss. Since he has no residual weakness and outside of the window for tPA, he was monitored on tele, sinus rhythm on the monitor. He was resumed on Eliquis, metoprolol, and statin. An echocardiogram that showed an EF of 30% and carotid Doppler preliminary report was negative. He has no further residual neuro deficits. Since he is on Eliquis, he was advised on compliance of Eliquis and added aspirin for cerebrovascular accident prophylaxis. He has an appointment with his motor power connector, Dr. Kendrick at [facility] in 2 days on Thursday. He will follow up for further evaluation. He is results were discussed with his daughter and the patient, all questions answered and will follow up PCP, Dr. Randal Harris and his motor power connector next week. PHYSICAL EXAMINATION: VITAL SIGNS: Temperature 97.7, pulse is 75, respirations 20, blood pressure 123/73, pulse ox is 99% on room air. GENERAL: No acute distress. HEENT: Normocephalic and atraumatic. NECK: Supple. LUNGS: Clear to auscultation. CARDIOVASCULAR: Regular rate and rhythm. GI: Soft and nontender. NEUROLOGIC: Alert, awake, and oriented x3. MUSCULOSKELETAL: Moves all extremities. SKIN: Dry. PSYCH: Calm. CONDITION AT DISCHARGE: Improved and stable. DISCHARGE MEDICATIONS: Resume all home medications and added aspirin 81 mg daily. FOLLOWUP: Follow up with Cardiology and PCP per appointment in 2 days. Emphasized the need to stop alcohol and tobacco use. TIME SPENT: Total discharge time is 32 minutes. Dictated by YANIQUE Armendariz Almaching Braxton Keller MD MY/MODL /[id number] cc: Randal Harris MD [facility]
== END 2020-07-25 13:03 | disposition home health service (06) ==
LOC: ER 10:15 → ERHOLD 12:02 → MED/SURG3 15:18
PROVIDERS: ADMIT Internal Medicine; ATTEND Internal Medicine
DX: I63.9 Cerebral infarction, unspecified (principal); G83.24 Monoplegia of upper limb affecting left nondominant side; N17.9 Acute kidney failure, unspecified; I48.91 Unspecified atrial fibrillation; E78.5 Hyperlipidemia, unspecified; N40.0 Benign prostatic hyperplasia without lower urinary tract symptoms; Z72.89 Other problems related to lifestyle; Z20.828 Contact with and (suspected) exposure to other viral communicable diseases; F17.210 Nicotine dependence, cigarettes, uncomplicated; Z80.9 Family history of malignant neoplasm, unspecified; Z82.49 Family history of ischemic heart disease and other diseases of the circulatory system; I11.0 Hypertensive heart disease with heart failure; I50.20 Unspecified systolic (congestive) heart failure
CPT/HCPCS: 36415 ×2; 70450; 70544; 70547; 70551; 71045; 80053 ×2; 80061; 82550 ×2; 82553 ×2; 83036; 83735; 84443; 84484 ×2; 85025 ×2; 85610; 85730; 93005; 93306; 93880; 97161; 99284; G0378 ×2; J7030 ×2; U0002